=== PATIENT | female | born 1975 | race African-American/Black ===

== ENCOUNTER 2019-07-28 03:14 | Emergency (ER) | payer SELFPAY ==
[~2019-07-28] VITALS: Ht 167.6 cm; Wt 54.4 kg
[2019-07-28 03:59] VITALS: BP 146/93
[2019-07-28 05:27] LABS: Urine Bacteria NONE SEEN /hpf (None Seen); Urine Blood Negative /uL (Negative); Urine Specific Gravity 1.002 (1.001-1.035); Urine WBC <1 /hpf (0 - 5)
== END 2019-07-28 05:35 ==
LOC: ER 03:16
DX: S96.912A Strain of unspecified muscle and tendon at ankle and foot level, left foot, initial encounter (principal); X58.XXXA Exposure to other specified factors, initial encounter; Y93.89 Activity, other specified; Y99.8 Other external cause status; Y92.89 Other specified places as the place of occurrence of the external cause
CPT/HCPCS: 73620; 81001